=== PATIENT | male | born 1995 | race Caucasian/White ===

== ENCOUNTER 2016-10-13 20:51 | Emergency (ER) | payer OTHER ==
[2016-10-13] MEDS ORDERED: MOTRIN PO ONE (22:25)
[2016-10-13] MEDS ORDERED: NORFLEX PO ONE (22:25)
[2016-10-13] MEDS ORDERED: NORCO-7.5 PO ONE (22:25)
[2016-10-13] MEDS ORDERED: PEPCID PO ONE (22:25)
--- NOTE | 2016-10-13 22:26 | PROVIDER DOCUMENTATION ---
HPI-Musculoskeletal Pain/Inj - GENERAL Chief Complaint: Back Pain Stated Complaint: BACK PAIN Time Seen by Provider: 10/13/16 21:33 Source: patient, family - HX OF PRESENT ILLNESS-MUSKULOSKELTAL Nature of Presenting Problem: 23 year old obese WM presents with c/o right lower back pain for 7 years, worse over the last 2 weeks. denies new injury, trauma, signs or symptoms. pt reports he has been evaluated by ortho spine and has been referred to pain management and has an appointment on the 31 of October. pt denies loss of bowel or bladder, numbness/tingling. Review of Systems - Adult - REVIEW OF SYSTEMS - ADULT Constitutional: reports: no symptoms reported. denies: chills, fever Eyes: reports: no symptoms reported. denies: discharge, blurred vision, double vision Ears, Nose, Mouth & Throat: reports: no symptoms reported. denies: ear discharge, ear pain, nose pain, loose teeth, throat pain, throat swelling Cardiovascular: reports: no symptoms reported. denies: chest pain, palpitations Respiratory: reports: no symptoms reported. denies: chronic cough, cough, shortness of breath, wheezing Gastrointestinal: reports: no symptoms reported. denies: abdominal pain, diarrhea, nausea, vomiting Genitourinary: reports: no symptoms reported. denies: dysuria, hematuria, urgency Musculoskeletal: reports: see HPI, bone pain, back pain. denies: frequent leg cramps, joint pain, joint swelling, muscle aches, muscle weakness, neck pain Integumentary: reports: no symptoms reported. denies: hives, itching Neurological: reports: no symptoms reported. denies: ataxia, dizziness/vertigo , numbness, paresthesia Psychiatric: reports: no symptoms reported Endocrine: reports: no symptoms reported Hematologic/Lymphatic: reports: no symptoms reported Allergic/Immunologic: reports: no symptoms reported All Other Systems: Reviewed and Negative Past History - Adult - PAST MEDICAL HISTORY-ADULT Review of Records: reports: Old Records Reviewed, Nursing Assessment Review, Medications Reviewed, Social history reviewed & non-contributory. 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, brain tumor) - PRIOR SURGERIES/PROCEDURES Surgical/Procedure History: reports: tonsillectomy - PRIOR HOSPITALIZATIONS Prior Hospitalizations: reports: none - IMMUNIZATION STATUS Childhood Immunizations: See Nurse Assessment Flu Vaccine: See Nurse Assessment - FAMILY HISTORY Family History: reviewed, not pertinent - SOCIAL HISTORY Smoking: denies, quit greater than 1 year, cigarettes Substance Use: none/never Alcohol Use Frequency: never Physical Exam-Injury Related - Physical Exam-Injury Related Initial Vital Signs Reviewed: Yes General Appearance: appears well, alert, no apparent distress Eyes: PERRL/EOMI, pink conjunctivae Head, Ears, Nose, Mouth & Throat: normocephalic/atraumatic, normal ENT inspection, TMs normal, pharynx normal Neck: non-tender, full range of motion, supple, normal inspection Respiratory: chest non-tender, lungs clear, normal breath sounds, no pleuratic chest pain, no respiratory distress, no accessory muscle use Cardiovascular: normal peripheral pulses, regular rate, rhythm, no edema, no gallop, no JVD, no murmur Peripheral Pulses: radial (R): 3+, radial (L): 3+ Abdominal Exam: normal bowel sounds, non tender, soft, no organomegaly, no pulsatile mass Rectal Exam: deferred Hemoccult Exam: deferred Lymphatic: no adenopathy Back Exam: normal inspection, no CVA tenderness, vertebral tenderness (lumbar spine tenderness, right paraspinal tenderness). negative: no vertebral tenderness Extremity: normal range of motion, non-tender, normal gait, normal inspection, no pedal edema, no calf tenderness, normal capillary refill, pelvis stable Integumentary: normal color, warm/dry Neurologic: grossly normal, no motor/sensory deficits. negative: focal weakness , motor weakness, sensory deficit Psych/Mental Status: AL, normal mood/affect, normal thought content, normal thought process, oriented x 3 Progress - PLAN OF CARE/RESULTS Progress/Plan/Lab Results: Orders Category Date Time Status Famotidine [Pepcid] Med 10/13/16 22:25 Discontinued 20 mg PO NOW ONE Hydrocodone/APAP 7.5 mg/325 mg [Ekron-7.5] Med 10/13/16 22:25 Discontinued 1 each PO NOW ONE Ibuprofen [Motrin] Med 10/13/16 22:25 Discontinued 800 mg PO NOW ONE Orphenadrine [Norflex] Med 10/13/16 22:25 Discontinued 100 mg PO NOW ONE Vital Signs - 24 hr 10/13/16 10/13/16 20:54 22:42 Pulse Rate 99 H 98 H Respiratory 20 18 Rate Blood Pressure 156/98 138/92 O2 Sat by Pulse 100 100 Oximetry Departure - Departure Time of Disposition Order: 22:22 DIAGNOSIS: Swayback Low back pain Qualifiers: Chronicity: chronic Back pain laterality: right Sciatica presence: without sciatica Qualified Code(s): M54.5 - Low back pain Disposition: HOME 01 Certified Medical Emergency: Emergent Condition: Stable Additional Instructions: Follow up with your ortho spine as scheduled. ED Follow Up Instructions: You have been treated by a care provider in the Emergency Department. These instructions are being provided to you so you can have an understanding of how to care for yourself upon discharge. Upon discharge from the Emergency Department, you are responsible for making arrangements for follow-up care by a physician of your choice. Take all prescribed medications as directed. Return to the Emergency Department immediately for any new or worsening symptoms. You may call the Physician Referral phone number at [phone] to obtain a list of Physicians who are taking new patients. 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
[2016-10-13 22:43] VITALS: BP 138/92
== END 2016-10-13 22:43 | disposition home or self-care (01) ==
LOC: ED 20:51
DX: M54.5 Low back pain (principal); M89.8X9 Other specified disorders of bone, unspecified site; G89.29 Other chronic pain; M40.40 Postural lordosis, site unspecified; Z86.011 Personal history of benign neoplasm of the brain; G11.9 Hereditary ataxia, unspecified; Z87.891 Personal history of nicotine dependence; Z79.899 Other long term (current) drug therapy
CPT/HCPCS: 99283

== ENCOUNTER 2019-06-15 09:39 | Inpatient (IN) ==
[2019-06-15] MEDS ORDERED: DUONEB (A & A) INH ONE ×2 (09:48→09:49)
[2019-06-15] MEDS ORDERED: NS 1,000 ML IV ONE ×2 (09:48→13:03)
[2019-06-15] MEDS ORDERED: TORADOL IV ONE (09:49)
[2019-06-15] MEDS ORDERED: TYLENOL PO ONE (09:49)
[2019-06-15] MEDS ORDERED: SOLU-MEDROL IV ONE (09:49)
[2019-06-15] MEDS ORDERED: ROCEPHIN 1 GM in NS 50 ML IV ONE ×2 (09:50→13:03)
[2019-06-15] MEDS ORDERED: ZITHROMAX PO ONE (09:50)
[2019-06-15] MEDS ORDERED: ZITHROMAX 500 MG/NS 500 MG/250 ML IVPB IV ONE (09:58)
[2019-06-15 11:24] LABS: BASO# 0.02 X1000 (0.0-0.2); BASO% 0.1 % (0.0-0.8); HEMATOCRIT 39.4 % (42.0-52.0); HEMOGLOBIN 13.4 g/dL (14.0-18.0); IMM GRAN# 0.07 X1000 (0.0-0.04); IMM GRAN% 0.5 % (0.0-0.5); LYMPH% 5.9 % (20.5-51.1); MCV 82.4 FL (81-99); MONO# 1.42 X1000 (0.11-0.59); MONO% 10.5 % (1.7-9.3); MPV 10.6 FL (7.4-10.4); NEUT# 11.15 X1000 (1.4-6.5); PLT 178 X1000 (130-400); RBC 4.78 XMIL (4.7-6.1); RDW 14.3 % (11.5-14.5); WBC 13.46 X1000 (4.8-10.8)
[2019-06-15 11:33] LABS: INR 1.25; PROTIME 15.9 Seconds (11.0-16.0)
[2019-06-15 11:35] LABS: PTT 34.8 Seconds (22.3-41.8)
[2019-06-15 11:57] LABS: AGAP 11; ALBUMIN 3.2 g/dL (3.5-5.0); ALKALINE PHOSPHATASE 90 U/L (32-122); BUN 7 mg/dL (8-22); CALCIUM 7.9 mg/dL (8.8-10.2); CHLORIDE 96 mmol/L (98-107); COSMO 258; CREATININE 0.9 mg/dL (0.7-1.2); ESTIMATED GFR > 60; GLUCOSE 123 mg/dL (70-104); GOT 59 U/L (10-34); GPT 70 U/L (10-44); POTASSIUM 3.7 mmol/L (3.5-5.1); SODIUM 129 mmol/L (136-145); TCO2 22 mmol/L (25-35); TOTAL BILIRUBIN 0.71 mg/dL (0.20-1.00); TOTAL PROTEIN 6.5 g/dL (6.3-8.3)
[2019-06-15 11:58] LABS: CK PROFILE 251 U/L (24-204)
--- NOTE | 2019-06-15 11:58 | Diag Imaging Result Doc PS360 ---
EXAM: CHEST-2 VIEWS INDICATION: short of breath, fever TECHNIQUE: 2 views COMPARISON: 06/14/2019 FINDINGS: Lung volumes are low similar to the previous study. No new consolidation is appreciated. The lungs remain grossly clear. No pleural fluid collection or pneumothorax is appreciated. The cardiomediastinal silhouette and central vasculature are grossly unremarkable. IMPRESSION: Low lung volumes but no definite acute pathology by plain radiograph, otherwise. Electronically signed by Cory Charles 06/15/2019 11:55 AM
[2019-06-15 12:27] LABS: CK INDEX 0.4 (0.0-2.5)
--- NOTE | 2019-06-15 13:07 | EKG Report ---
Test Performed on : 06/15/2019 09:49:09 AM Test Reason : ED. No order in [place] Blood Pressure : / mmHG Vent. Rate : 122 BPM Atrial Rate : 122 BPM P-R Int : 142 ms QRS Dur : 092 ms QT Int : 306 ms P-R-T Axes : -07 010 023 degrees QTc Int : 436 ms Sinus tachycardia. Otherwise normal ECG When compared with ECG of 24-APR-2018 11:57, No significant change was found Unconfirmed Result
--- NOTE | 2019-06-15 13:08 | PROVIDER DOCUMENTATION ---
This chart was entered by Erin Hall Scribe, acting as scribe for Eagle Henry MD. HPI-Fever - General Chief Complaint: Shortness of Breath Stated Complaint: CANT BREATHE Time Seen by Provider: 06/15/19 09:42 Source: patient Allergies/Adverse Reactions: Patient Allergies Allergy/AdvReac Type Severity Reaction Status Date / Time No Known Allergies Allergy Verified 06/15/19 10:45 Home Medications: Home Medication List Medication Instructions Recorded Confirmed Last Taken Type Pantoprazole [Protonix] 40 mg PO DAILY 06/14/19 06/15/19 Unknown History - History of Present Illness-Fever Nature of Presenting Problem: Patient is a 24 year old male who presents with fever. States shortness of breath, chills, body aches, headache, chest pain and cough with fever. Reports symptoms have been present for 3 days. History of cerebellar ataxia. Patient was seen in the ED yesterday and diagnosed with viral syndrome. Fever Severity/Quality: reports: greater than 100.5 F Onset/Duration: reports: 3 days ago Timing: reports: still present Severity: reports: moderate Recent Illness?: reports: none Cognitive Baseline: alert, oriented x3 Associated Symptoms: reports: chest pain, cough, fever/chills (chills), headaches, muscle aches Similar Symptoms Previously?: Yes Recently seen or treated by another doctor?: Yes - Glascow Coma Score Best Eye Response ([place]): (4) open spontaneously Best Verbal Response ([place]): (5) oriented Best Motor Response ([place]): (6) obeys commands [place] Total: 15 Review of Systems - Adult - REVIEW OF SYSTEMS - ADULT Constitutional: reports: see HPI, chills, fever. denies: fatique Eyes: reports: no symptoms reported Ears, Nose, Mouth & Throat: reports: no symptoms reported Cardiovascular: reports: see HPI, chest pain. denies: irregular heart rate, palpitations Respiratory: reports: see HPI, cough, shortness of breath. denies: wheezing Gastrointestinal: reports: no symptoms reported Genitourinary: reports: no symptoms reported Musculoskeletal: reports: see HPI, muscle aches. denies: back pain, neck pain Integumentary: reports: no symptoms reported Neurological: reports: see HPI, headache/migraines (MARK). denies: dizziness /vertigo, syncope Psychiatric: reports: no symptoms reported Endocrine: reports: no symptoms reported Hematologic/Lymphatic: reports: no symptoms reported Allergic/Immunologic: reports: no symptoms reported All Other Systems: Reviewed and Negative Past History - Adult - PAST MEDICAL HISTORY-ADULT Review of Records: reports: Old Records Reviewed, Social history reviewed & non- contributory. 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, brain tumor) - PRIOR SURGERIES/PROCEDURES Surgical/Procedure History: reports: tonsillectomy - PRIOR HOSPITALIZATIONS Prior Hospitalizations: reports: none - IMMUNIZATION STATUS Childhood Immunizations: See Nurse Assessment Flu Vaccine: See Nurse Assessment - FAMILY HISTORY Family History: reviewed, not pertinent - SOCIAL HISTORY Smoking: other (vape) Substance Use: alcohol Alcohol Use Frequency: occasionally Living Situation: family Physical Exam-General - PHYSICAL EXAM-ADULT Initial Vital Signs Reviewed: Yes - CONSTITUTIONAL General Appearance: alert, mild distress, obese, other (ill in appearance). negative: lethargic - HEAD, EARS, NOSE, MOUTH & THROAT HENMT: normocephalic/atraumatic, other (dry mucous membranes). negative: angioedema - RESPIRATORY Respiratory: chest non-tender, increased rate. negative: respiratory distress, crackles, wheezing - CARDIOVASCULAR Cardiovascular: normal peripheral pulses, tachycardia. negative: systolic murmur - GASTROINTESTINAL (ABDOMEN) Abdominal Exam: normal bowel sounds, non tender, soft. negative: guarding, rebound - MUSCULOSKELETAL Extremity: non-tender, normal inspection. negative: deformity, erythema - SKIN Integumentary: normal color, normal turgor, diaphoresis. negative: jaundice, rash - NEUROLOGIC Neurologic: grossly normal. negative: aphasia, facial droop - PSYCHIATRIC Psych/Mental Status: normal mood/affect, oriented x 3. negative: anxious Progress - PLAN OF CARE/RESULTS Progress/Plan/Lab Results: Vital Signs - 8 hr 06/15/19 09:42 06/15/19 09:57 06/15/19 09:59 Temperature 100.7 F H Pulse Rate 120 H 118 H Respiratory Rate 23 30 H Blood Pressure 112/68 O2 Sat by Pulse Oximetry 96 96 06/15/19 12:29 Temperature 99.3 F Pulse Rate 94 H Respiratory Rate 25 H Blood Pressure 114/61 O2 Sat by Pulse Oximetry 92 L 06/15/19 11:35 Group A Strep Rapid Antigen - Final Throat 06/15/19 09:58 Influenza Screen - Final Nasopharyngeal Laboratory Results - last 24 hr 06/15/19 06/15/19 06/15/19 09:52 11:00 11:00 WBC 13.46 H RBC 4.78 Hgb 13.4 L Hct 39.4 L MCV 82.4 MCH 28.0 MCHC 34.0 RDW Std Deviation 14.3 Plt Count 178 MPV 10.6 H Immature Gran % (Auto) 0.5 Neut % (Auto) 83.0 H Lymph % (Auto) 5.9 L [place] % (Auto) 10.5 H Eos % (Auto) 0.0 Baso % (Auto) 0.1 Immature Gran # (Auto) 0.07 H Neut # (Auto) 11.15 H Lymph # (Auto) 0.80 L [place] # (Auto) 1.42 H Eos # (Auto) 0.00 Baso # (Auto) 0.02 PT INR PTT (Actin FS) D-Dimer, Quantitative Sodium Potassium Chloride Carbon Dioxide Anion Gap BUN Creatinine Estimated GFR/1.73 m2 BUN/Creatinine Ratio Glucose POC Glucose 173 H Calculated Osmolality Calcium Total Bilirubin AST ALT Alkaline Phosphatase Creatine Kinase Creatine Kinase Index CK-MB (CK-2) Troponin T Total Protein Albumin Globulin Albumin/Globulin Ratio Plasma Lactate 1.2 06/15/19 06/15/19 06/15/19 11:00 11:00 11:00 WBC RBC Hgb Hct MCV MCH MCHC RDW Std Deviation Plt Count MPV Immature Gran % (Auto) Neut % (Auto) Lymph % (Auto) [place] % (Auto) Eos % (Auto) Baso % (Auto) Immature Gran # (Auto) Neut # (Auto) Lymph # (Auto) [place] # (Auto) Eos # (Auto) Baso # (Auto) PT 15.9 INR 1.25 PTT (Actin FS) 34.8 D-Dimer, Quantitative Sodium 129 L Potassium 3.7 Chloride 96 L Carbon Dioxide 22 L Anion Gap 11 BUN 7 L Creatinine 0.9 Estimated GFR/1.73 m2 > 60 BUN/Creatinine Ratio 8 Glucose 123 H POC Glucose Calculated Osmolality 258 Calcium 7.9 L Total Bilirubin 0.71 AST 59 H ALT 70 H Alkaline Phosphatase 90 Creatine Kinase 251 H Creatine Kinase Index 0.4 CK-MB (CK-2) 1.00 Troponin T < 0.010 Total Protein 6.5 Albumin 3.2 L Globulin 3.3 Albumin/Globulin Ratio 1.0 Plasma Lactate 06/15/19 11:00 WBC RBC Hgb Hct MCV MCH MCHC RDW Std Deviation Plt Count MPV Immature Gran % (Auto) Neut % (Auto) Lymph % (Auto) [place] % (Auto) Eos % (Auto) Baso % (Auto) Immature Gran # (Auto) Neut # (Auto) Lymph # (Auto) [place] # (Auto) Eos # (Auto) Baso # (Auto) PT INR PTT (Actin FS) D-Dimer, Quantitative 2.80 H Sodium Potassium Chloride Carbon Dioxide Anion Gap BUN Creatinine Estimated GFR/1.73 m2 BUN/Creatinine Ratio Glucose POC Glucose Calculated Osmolality Calcium Total Bilirubin AST ALT Alkaline Phosphatase Creatine Kinase Creatine Kinase Index CK-MB (CK-2) Troponin T Total Protein Albumin Globulin Albumin/Globulin Ratio Plasma Lactate Orders Category Date Time Status Cardiac Monitoring DIRECTED Care 06/15/19 09:46 Active IV Insertion ORDERED Care 06/15/19 09:46 Completed Notify MD of + Sepsis Screen NOW Care 06/15/19 09:46 Active Notify Physician As Ordered Care 06/15/19 09:46 Active CHEST-2 VIEWS [RAD] Stat Exams 06/15/19 09:47 Completed BLOOD CULTURE [BLDCUL] Stat Lab 06/15/19 11:00 Ordered CBC WITH DIFF [HEME] Stat Lab 06/15/19 11:00 Completed CK PROFILE [SP CHEM] Stat Lab 06/15/19 11:00 Completed COMPREHENSIVE METABOLIC PANEL [CHEM] Stat Lab 06/15/19 11:00 Completed D-DIMER [COAG] Stat Lab 06/15/19 11:00 Completed DIRECT STREP Stat Lab 06/15/19 11:35 Completed INFLUENZA SCREEN A/B Stat Lab 06/15/19 09:58 Completed LACTATE, PLASMA [CHEM] Lab 06/15/19 13:00 Uncollected LACTATE, PLASMA [CHEM] Lab 06/15/19 16:00 Uncollected LACTATE, PLASMA [CHEM] Q3H Lab 06/15/19 11:00 Completed PROTIME WITH INR [COAG] Stat Lab 06/15/19 11:00 Completed PTT [COAG] Stat Lab 06/15/19 11:00 Completed TROPONIN T Stat Lab 06/15/19 11:00 Completed URINALYSIS W/POSS RFLX CULT [URINALYSIS] Stat Lab 06/15/19 09:46 Uncollected URINE DRUG SCREEN Stat Lab 06/15/19 09:59 Uncollected 0.9% Sodium Chloride Inj [Ns] 1,000 ml Med 06/15/19 09:48 Discontinued IV 999 mls/hr Acetaminophen [Tylenol] Med 06/15/19 09:49 Discontinued 1,000 mg PO NOW ONE Albuterol 2.5MG/Ipratrop 0.5MG [Duoneb (A & A)] Med 06/15/19 09:48 Discontinued 3 ml INH NOW ONE Albuterol 2.5MG/Ipratrop 0.5MG [Duoneb (A & A)] Med 06/15/19 09:49 Discontinued 3 ml INH NOW ONE Azithromycin 500 mg/Ns [Zithromax 500 mg/Ns] Med 06/15/19 09:58 Discontinued 500 mg in 250 ml IV NOW Azithromycin [Zithromax] Med 06/15/19 09:50 Discontinued 1,000 mg PO NOW ONE CefTRIAXONE [Rocephin] 1 gm Med 06/15/19 09:50 Discontinued 0.9% Sodium Chloride Inj [Ns] 50 ml IV NOW Ketorolac [Toradol] Med 06/15/19 09:49 Discontinued 30 mg IV NOW ONE Methylprednisolone Sod Succ [Solu-Medrol] Med 06/15/19 09:49 Discontinued 125 mg IV NOW ONE Aerosol Treatments Routine Oth 06/15/19 09:49 Completed Aerosol Treatments Routine Oth 06/15/19 09:49 Completed Aerosol Treatments Stat Oth 06/15/19 09:49 Completed Aerosol Treatments Stat Oth 06/15/19 09:49 Completed Oxygen Device Stat Ot 06/15/19 09:46 Active Result Diagrams: 06/15/19 11:00 06/15/19 11:00 - REASSESSMENT Reassessment #1 Time Reassessed: 13:01 Status: improving (Blood culture last night is positive for Gm + Cocci) Reassessment Comment: GIven IVF bolus, IV toradol, solumedrol, IV rocephin/zithromax for CAP - EKG 1 Time of EKG reading by physician:: 09:49 EKG Read and Signed by:: Eagle Henry EKG Interpretation (*Must complete 3 of following elements*): Abnormal Rate: 122 Rhythm: sinus tachycardia [place]: normal [place] Interval: normal Comments: otherwise normal ECG - CONSULTS/PCP/HOSPITALIST Notification #1 *Consult/PCP/Hospitalist*: SERVANDO Esposito Time Discussed: 13:07 Reason/Comments: Admit to [facility] Consult Disposition: Will see in ED Departure - Departure Date of Disposition Decision: 06/15/19 Time of Disposition Decision: 13:05 DIAGNOSIS: Bacteremia due to other bacteria Sepsis without acute organ dysfunction Qualifiers: Sepsis type: Pneumococcus Qualified Code(s): A40.3 - Sepsis due to Streptococcus pneumoniae Bilateral pneumonia Qualifiers: Pneumonia type: due to Pneumococcus Lung location: unspecified part of lung Qualified Code(s): J13 - Pneumonia due to Streptococcus pneumoniae Disposition: ADMITTED INPATIENT 09 Certified Medical Emergency: Emergent Condition: Fair Referrals and Follow-Ups: None,PCP [Primary Care Provider] - - Critical Care Note This patient required my direct & personal management of CC.: Yes Total Time (mins): 35 ([facility], STRATEGY ASSOCIATE, metabolic) Critical Care Statement: This patient required my direct personal management to treat or rule out processes, the absence of which, could potentiallly result in sudden, clinically significant life or limb threatening deterioration. Attestation - Physician/ RACHEL Attestation Patient care was provided by Advanced Practice Provider:: No The physician spent face to face time with patient:: Yes Advanced Practice Provider documentation review:: Supervising physician onsite and consulted in the evaluation and care of this patient. The physician did have a face to face encounter with the patient. This chart was documented by the indicated scribe, (Erin Hall Scribe) and accurately reflects the services I performed and decisions made by , Eagle Henry MD, as attested by the provider's signature.
[2019-06-15 13:54] LABS: URINE SOURCE CLEAN CATCH
[2019-06-15 13:59] LABS: BILIRUBIN URINE NEGATIVE (NEGATIVE); BLOOD URINE TRACE (NEGATIVE); COLOR YELLOW; GLUCOSE URINE TRACE mg/dL (NEGATIVE); KETONE URINE TRACE mg/dL (NEGATIVE); LEUKOCYTES URINE NEGATIVE (NEGATIVE); NITRITE URINE NEGATIVE (NEGATIVE); PH URINE 6.5; PROTEIN URINE 50 mg/dL (NEGATIVE); SP GRAVITY URINE 1.019; TURBIDITY URINE CLEAR (CLEAR); UROBILINOGEN URINE NORMAL (NORMAL)
[2019-06-15] MEDS ORDERED: VANCOMYCIN IV PER PHARMACY MISC SCH (14:00)
[2019-06-15 14:02] LABS: UR EPITHELIAL CELLS <10 /HPF (<10); URINE BACTERIA NEGATIVE /HPF; URINE RBC <10 /HPF (<10); URINE WBC <10 /HPF (<10)
[2019-06-15 14:11] LABS: UR AMPHETAMINES QUAL PRESUMPTIVE POSITIVE (NONE DETECT); UR BARBITUATES QUAL NONE DETECTED (NONE DETECT); UR BENZODIAZEPIN QUAL PRESUMPTIVE POSITIVE (NONE DETECT); UR CANNABINOIDS QUAL PRESUMPTIVE POSITIVE (NONE DETECT); UR COCAINE QUAL PRESUMPTIVE POSITIVE (NONE DETECT); UR METHADONE QUAL NONE DETECTED (NONE DETECT); UR OPIATES QUAL NONE DETECTED (NONE DETECT); UR OXYCODONE QUAL NONE DETECTED (NONE DETECT); UR PCP QUAL NONE DETECTED (NONE DETECT)
[2019-06-15] MEDS: ZOSYN 3.375 GM in NS 50 ML IV SCH ×2 (14:15→21:08)
[2019-06-15 14:24] LABS: URINE CRYSTALS CA OXALATE PRESENT
--- NOTE | 2019-06-15 15:15 | Diag Imaging Result Doc PS360 ---
EXAM: CT ANGIOGRM PULMONARY ARTERIES 06/15/2019 HISTORY: elevated ddimer, dyspnea TECHNIQUE: This exam was performed using automated exposure control, adjustment of mA or kV according to patient size, and/or use of iterative reconstruction technique. COMMENT: There are no filling defects in the pulmonary arteries. The aorta is not distended and there is no evidence of dissection. There is extensive alveolar opacification of the left lower lobe and also in the posterior inferior right upper lobe. There is a calcified granuloma in the right middle lobe. Minimal atelectatic changes are present in the right posterior costophrenic sulcus. There are also atelectatic or fibrotic changes in the lingula. There is a small splenule near the spleen. The spleen is enlarged measuring over 16.5 cm in AP dimension. There is a right paratracheal node measuring over 15 mm. The regional skeleton appears to be intact. IMPRESSION: Bronchopneumonia particularly in the left lower lobe. Advise follow-up until clear. Splenomegaly. Right paratracheal adenopathy. Electronically signed by Pedro Alejandra 06/15/2019 3:12 PM
[2019-06-15] MEDS: NS 1,000 ML IV SCH (15:18)
[2019-06-15] MEDS: DUONEB (A & A) INH SCH ×3 (15:38→23:41)
[2019-06-15] MEDS: VANCOMYCIN 2,000 MG in NS 500 ML IV SCH (17:06)
[2019-06-16] MEDS: NS 1,000 ML IV SCH ×5 (00:13→23:39)
[2019-06-16] MEDS: ZOSYN 3.375 GM in NS 50 ML IV SCH ×4 (02:36→20:30)
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
[2019-06-16] MEDS: VANCOMYCIN 2,000 MG in NS 500 ML IV SCH ×2 (03:50→15:38)
[2019-06-16] MEDS: PRILOSEC PO SCH (06:34)
[2019-06-16] MEDS: DUONEB (A & A) INH SCH ×7 (07:40→23:12)
[2019-06-16 07:41] LABS: BASO# 0.02 X1000 (0.0-0.2); BASO% 0.2 % (0.0-0.8); HEMATOCRIT 40.1 % (42.0-52.0); HEMOGLOBIN 13.7 g/dL (14.0-18.0); IMM GRAN# 0.05 X1000 (0.0-0.04); IMM GRAN% 0.4 % (0.0-0.5); LYMPH# 0.66 X1000 (1.2-3.4); MCHC 34.2 g/dL (33-37); MONO# 0.97 X1000 (0.11-0.59); MONO% 7.4 % (1.7-9.3); MPV 10.4 FL (7.4-10.4); NEUT# 11.49 X1000 (1.4-6.5); PLT 219 X1000 (130-400); RBC 4.89 XMIL (4.7-6.1); RDW 14.6 % (11.5-14.5); WBC 13.19 X1000 (4.8-10.8)
[2019-06-16] MEDS: TYLENOL PO PRN ×2 (07:57→20:47)
[2019-06-16 08:08] LABS: AGAP 12; ALB/GLOB RATIO 0.8; ALBUMIN 3.2 g/dL (3.5-5.0); ALKALINE PHOSPHATASE 86 U/L (32-122); BUN 7 mg/dL (8-22); CALCIUM 8.5 mg/dL (8.8-10.2); CHLORIDE 107 mmol/L (98-107); COSMO 277; CREATININE 0.8 mg/dL (0.7-1.2); ESTIMATED GFR > 60; GLUCOSE 125 mg/dL (70-104); GOT 31 U/L (10-34); GPT 58 U/L (10-44); MAGNESIUM 2.1 mg/dL (1.5-2.7); POTASSIUM 3.6 mmol/L (3.5-5.1); SODIUM 139 mmol/L (136-145); TCO2 20 mmol/L (25-35); TOTAL BILIRUBIN 0.38 mg/dL (0.20-1.00)
[2019-06-16 08:33] LABS: BANDS 1 % (0-1); LYMPHS 6 % (21-51); MONO 5 % (1-9); SEGS 88 % (42-75)
[2019-06-16 09:17] LABS: HIV ANTIBODY SCREEN SEE COMMENTS
--- NOTE | 2019-06-16 13:11 | PROGRESS NOTE ---
DATE: 06/16/2019 SUBJECTIVE: Patient reports still short of breath. Basic better in comparing with yesterday. Denies any chest pain. OBJECTIVE: Vital Signs: Temperature 99.0 degrees, heart rate 94, respiratory rate 26, blood pressure 125/72. O2 saturation 94% on room air. General Examination: This is a 24-year-old male, lying in bed, in no acute distress. Cardiovascular: S1, S2 heard. No murmurs, gallops, or rubs. Regular rate and rhythm. Respiratory: Clear bilaterally to auscultation. No work of breathing. Not using accessory muscles. Abdomen: Soft. Nontender to palpation. Nondistended. Bowel sounds present. No organomegaly. Extremities: No clubbing. No cyanosis or edema. Peripheral pulses present in both legs. Neurological: The patient is alert and oriented x3. Moves 4 extremities. LABORATORY DATA: White cell count 13.19, hemoglobin 13.7, hematocrit 40.1, platelets 219,000. BMP is okay with calcium 8.2, albumin 3.2. UDS positive for amphetamines, benzodiazepines, cocaine, and cannabinoids, and the HIV test has returned nonreactive. ASSESSMENT AND PLAN: 1. Left lower lobe pneumonia. Patient is on vancomycin and Zosyn. White cell count is still slightly elevated. We will continue with breathing treatments and current antibiotic therapy. Preliminary results from blood cultures show with gram-positive cocci. The final sensitivity is not back yet. At this point, we will continue with the same management. 2. Elevated D-dimer. We have ruled out pulmonary embolism already. 3. Active polysubstance abuse. I had a long conversation with the patient. I encouraged him to quit using drugs. He reports being in a rehab center. He said that he will try to quit drugs. He said the last time that he used IV drugs was less than a year ago. In any case, we will do an echocardiogram and hepatitis panel. 4. Hyponatremia. Continue IV hydration, it is resolved. 5. Disposition. At this point, I am planning to keep this patient over the weekend awaiting for the blood cultures. We will continue with current antibiotic. Once we know the final sensitivity on the blood culture, then we will level adjust antibiotics accordingly. cc: Johan Eduardo MD [facility] SHOREShasha
--- NOTE | 2019-06-16 17:57 | ECHO REPORT ---
ORDER DATE: 06/15/2019 INDICATION: Fever, IV drug use, dyspnea. M-MODE MEASUREMENTS: Left ventricle end diastole: 5.2. Left ventricle end systole: 3.5. Posterior wall: 1.1. Interventricular septum: 1.1. Left atrium: 4.0. Aortic diameter: 3.7. SUMMARY OF 2-DIMENSIONAL IMAGIN. Left ventricular function is normal. Ejection fraction visually estimated at 60%. No wall motion abnormality noted. 2. The right ventricle appears to be normal. 3. The aortic valve is normal. Color flow mapping unremarkable. 4. The mitral valve looks normal. Color flow mapping unremarkable. 5. Pulsed wave Doppler of mitral inflow is normal. 6. Tissue Doppler of septal and lateral mitral annulus is normal. There is no diastolic dysfunction. 7. The pulmonic valve appears to be grossly normal. 8. The tricuspid valve appears to be grossly normal. Color flow mapping indicates minimal regurgitation. The inferior vena cava is not dilated. Pulmonary pressure is estimated at 37 mmHg. 9. Pulmonary venous flow is normal. 10.There is no pericardial effusion, mass, or thrombus. Clinical correlation recommended. cc: MD Johan Cuadra MD
--- NOTE | 2019-06-16 21:58 | Extremity Venous Study ---
PROCEDURE NAME: Venous U/S Bilateral Legs - 06/15/2019 REFERRING PHYSICIAN: SERVANDO Cervantes READING PHYSICIAN: Jose Roberto Landeros MD CONTRACT MANAGER: Robel. INDICATION: Elevated D-dimer. FINDINGS: The deep and superficial veins of both lower extremities were imaged throughout their course. They are compressible, patent, and without thrombus. INTERPRETATION: No deep venous thrombosis or superficial venous thrombosis of either lower extremity. cc: MD Fabiana Hobbs CRNP
[2019-06-17] MEDS: ZOSYN 3.375 GM in NS 50 ML IV SCH (01:10)
[2019-06-17] MEDS: TYLENOL PO PRN ×2 (01:35→09:27)
[2019-06-17] MEDS: VANCOMYCIN 2,000 MG in NS 500 ML IV SCH ×3 (03:55→17:34)
[2019-06-17] MEDS: NS 1,000 ML IV SCH (05:24)
[2019-06-17] MEDS: PRILOSEC PO SCH (06:12)
[2019-06-17 06:21] LABS: BASO# 0.01 X1000 (0.0-0.2); BASO% 0.1 % (0.0-0.8); HEMATOCRIT 36.7 % (42.0-52.0); HEMOGLOBIN 12.5 g/dL (14.0-18.0); IMM GRAN# 0.07 X1000 (0.0-0.04); IMM GRAN% 0.8 % (0.0-0.5); LYMPH# 1.27 X1000 (1.2-3.4); LYMPH% 14.4 % (20.5-51.1); MCH 28.2 PG (27-31); MCHC 34.1 g/dL (33-37); MCV 82.8 FL (81-99); MONO# 0.78 X1000 (0.11-0.59); MONO% 8.8 % (1.7-9.3); MPV 10.7 FL (7.4-10.4); NEUT# 6.71 X1000 (1.4-6.5); NEUT% 75.9 % (42.2-75.2); PLT 233 X1000 (130-400); RBC 4.43 XMIL (4.7-6.1); WBC 8.84 X1000 (4.8-10.8)
[2019-06-17 06:37] LABS: AGAP 17; ALKALINE PHOSPHATASE 77 U/L (32-122); BUN 7 mg/dL (8-22); CALCIUM 7.8 mg/dL (8.8-10.2); CHLORIDE 107 mmol/L (98-107); COSMO 286; CREATININE 0.8 mg/dL (0.7-1.2); ESTIMATED GFR > 60; GLUCOSE 118 mg/dL (70-104); GOT 27 U/L (10-34); GPT 49 U/L (10-44); POTASSIUM 3.3 mmol/L (3.5-5.1); SODIUM 144 mmol/L (136-145); TCO2 20 mmol/L (25-35); TOTAL BILIRUBIN 0.26 mg/dL (0.20-1.00); TOTAL PROTEIN 6.1 g/dL (6.3-8.3)
[2019-06-17] MEDS: DUONEB (A & A) INH SCH ×5 (07:28→23:15)
[2019-06-17] MEDS ORDERED: LEVAQUIN PO SCH (09:00)
[2019-06-17] MEDS: KLOR-CON PO SCH ×2 (09:27→12:45)
[2019-06-17] MEDS: LOVENOX SUBQ SCH (09:28)
[2019-06-17 13:47] LABS: HEPATITIS PROFILE ACUTE SEE COMMENTS
--- NOTE | 2019-06-17 13:50 | PROGRESS NOTE ---
DATE: 06/17/2019 INTERVAL HISTORY: He did have episode of fever early intervention specialist today. He continues to complain of some chest pain, pleuritic in nature and shortness of breath. He continues to complain of some dizziness. Discussed about the pathogenesis of Staph epidermidis bacteremia, IV drug use being risk factor. He denies using IV drugs though. We also discussed about IV access. I answered all of his questions. His mother is at bedside. OBJECTIVE: VITAL SIGNS: Currently, temperature 101.4 degrees, pulse 110, respiratory 16, blood pressure 130/82. She is saturating 99% on room air. PHYSICAL EXAMINATION: General: Morbidly obese, not in acute distress. Oral cavity is moist. Lungs: Air entry bilaterally equal. No wheeze or rhonchi. Inspiratory crackles, left infrascapular region. Cardiovascular: S1, S2 normal. No murmur, rub, or gallop.. Abdomen: Soft, nontender. Extremity: No lower extremities edema. Neurologic: He is alert and oriented x3. Able to raise both upper and lower extremity and move spontaneously. LABORATORY DATA: Suggestive of no leukocytosis, normocytic anemia, normal platelet count, hypokalemia which is currently being repleted. So far, the repeat blood culture on 15 June has been negative. ASSESSMENT AND PLAN: 1. Staphylococcal epidermidis sepsis with a history of substance abuse leading to likely hematogenesis spread bilateral lung pneumonia. Continue intravenous vancomycin. Start patient on oral Levaquin. Follow up with sputum culture, urine antigen results. I will consult Infectious Disease team tomorrow for long-term antibiotic plan. Surgical team has been consulted for need for IV access. 2. Polysubstance abuse patient was counseled about not using these substances in future. HIV test has been negative. Hepatitis panel is pending. He states he used IV drugs less than a year ago and recently he has been snorting cocaine mixed with other substances. Echocardiogram did not have any valvular vegetation. 3. Hyponatremia, now resolved. DISPOSITION: I will continue to monitor patient inside the hospital. I conclude with Infectious Disease team as well as Surgical Team about long-term antibiotic management plan and need for IV access since he has Staph bacteremia on 2 of the blood cultures drawn on June 14. He would need long-term antibiotic therapy. Plan of care discussed with the patient and his mother at bedside. Their questions have been answered. cc: Dima Lim MD
[2019-06-18] MEDS: VANCOMYCIN 2,000 MG in NS 500 ML IV SCH ×2 (00:33→14:07)
[2019-06-18] MEDS: PRILOSEC PO SCH (06:18)
[2019-06-18 07:36] LABS: AGAP 11; BUN 6 mg/dL (8-22); CALCIUM 8.7 mg/dL (8.8-10.2); CHLORIDE 101 mmol/L (98-107); COSMO 273; CREATININE 0.7 mg/dL (0.7-1.2); ESTIMATED GFR > 60; GLUCOSE 93 mg/dL (70-104); MAGNESIUM 1.8 mg/dL (1.5-2.7); POTASSIUM 3.3 mmol/L (3.5-5.1); SODIUM 138 mmol/L (136-145); TCO2 26 mmol/L (25-35)
[2019-06-18] MEDS ORDERED: KLOR-CON PO ONE (07:59)
[2019-06-18] MEDS: DUONEB (A & A) INH SCH ×4 (08:16→23:31)
--- NOTE | 2019-06-18 08:26 | PROGRESS NOTE ---
DATE: 06/18/2019 INTERVAL HISTORY: No acute events overnight. I discussed with him about getting an IV access. I also discussed with him about long-term antibiotic plan and awaiting infectious disease's recommendation. I answered all of his questions. His mother is at bedside. He denies any chest pain. He has not been able to make any sputum. His shortness of breath is better. I encouraged him to ambulate. VITALS: Temperature 98.2 degrees, pulse 77, respiratory rate 17, blood pressure 130/74, saturating 97% on room air. PHYSICAL EXAMINATION: Morbidly obese. Not in any acute distress. Oral cavity is moist. Lungs: Air entry bilaterally equal, with inspiratory crackles in the left infrascapular region. No wheeze or rhonchi. S1, S2 normal. No murmur, rub, or gallop. Abdomen: Soft, nontender. No lower extremity edema. He is alert and oriented x3. LABS: No CBC today. BMP has a potassium of 3.3 and magnesium of 1.8 which I would replete. Urine antigens have been collected. He has loose stools but it is only once or twice daily. No other microbiological data. ASSESSMENT AND PLAN: 1. Staphylococcal epidermidis sepsis with history of substance abuse leading to hematogenously spread bilateral lung pneumonia. His blood cultures on June 14, two sets were positive; his blood culture on June 15, two sets were negative. Continue intravenous vancomycin. We will appreciate infectious disease recommendation about changing antibiotics to intravenous Levaquin for long-term antibiotic management plan. I will also appreciate recommendation about intravenous access. He has not been able to make sputum. His urine antigens are pending. 2. Polysubstance abuse with urine toxicology positive for cocaine, amphetamine, benzodiazepine, and cannabis. He, however, states that he has only been snorting and not injecting at least for the last one year. Echocardiogram did not have any valvular vegetations. I counseled him about stopping these substances. 3. Hypokalemia, is currently being repleted; he does have history of cerebellar ataxia and undiagnosed seizure. 4. Disposition. I will continue to monitor patient inside the hospital. We will possibly transfer him out of PVC unit. Plan of care discussed with the patient and his questions have been answered. cc: Dima Lim MD
[2019-06-18] MEDS: LOVENOX SUBQ SCH (08:33)
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
[2019-06-19] MEDS: VANCOMYCIN 2,000 MG in NS 500 ML IV SCH ×2 (01:29→17:07)
[2019-06-19] MEDS: DUONEB (A & A) INH SCH ×5 (02:12→19:27)
[2019-06-19] MEDS: PRILOSEC PO SCH (06:21)
[2019-06-19 07:30] LABS: INR 0.95; PROTIME 12.7 Seconds (11.0-16.0)
[2019-06-19 08:07] LABS: CHLORIDE 102 mmol/L (98-107); POTASSIUM 3.8 mmol/L (3.5-5.1); SODIUM 138 mmol/L (136-145); TCO2 21 mmol/L (25-35)
[2019-06-19 08:08] LABS: AGAP 15; BUN 9 mg/dL (8-22); CALCIUM 8.4 mg/dL (8.8-10.2); COSMO 274; CREATININE 0.7 mg/dL (0.7-1.2); ESTIMATED GFR > 60; GLUCOSE 90 mg/dL (70-104)
[2019-06-19] MEDS: LOVENOX SUBQ SCH (09:41)
[2019-06-19 12:14] VITALS: BP 146/89
[2019-06-19] MEDS ORDERED: NS 250 ML ONE (13:54)
--- NOTE | 2019-06-20 09:03 | DISCHARGE SUMMARY ---
ADMISSION DATE: 06/15/2019 DISCHARGE DATE: 06/19/2019 DISCHARGE DISPOSITION: Home with PICC line. DISCHARGE CONDITION: Hemodynamically stable. No fever. He is about to get his PICC line. He will need home IV vancomycin therapy. social services is working on setting it up. DISCHARGE DIAGNOSES: 1. Staphylococcal epidermidis sepsis. 2. Polysubstance abuse. 3. Hematogenesis bilateral Staphylococcus epidermidis pneumonia. 4. Hypokalemia. 5. History of cerebellar ataxia and unclear seizure disorder, not on any medication. 6. Morbid obesity. DISCHARGE MEDICATION: 1. Pantoprazole 40 mg daily. 2. Acetaminophen 650 mg every 6 hours as needed for pain. 3. Intravenous vancomycin for 10 days. Additionally, last day would be 06/28/2019. CONSULTATIONS DURING HOSPITALIZATION: 1. Dr. Allen for antibiotic set up. 2. Dr. Holman for IV access, which he did not require eventually. VITALS: At the time of discharge temperature 98.9 degrees, pulse 82, respiratory 21, blood pressure 150/80, saturating 95% room air. PHYSICAL EXAMINATION: General: Does not appear in any acute distress. Oral cavity is moist. Lungs: Air entry bilaterally equal. Inspiratory crackles left infrascapular region. Cardiovascular: S1, S2 normal. No murmur or gallop. Abdomen: Soft, nontender. Extremity: No lower extremity edema. Neurologic: He is alert and oriented x3. SIGNIFICANT LABS: During hospital admission discharge, [place] [address] on admission which had decreased to 8000 at the time of discharge, hemoglobin 12.5, and platelet 233,000. His sodium is 138, potassium 3.8, BUN of 9, creatinine of 0.7. His urinalysis had ketonuria. His urine toxicology was positive for amphetamine, benzodiazepine, cocaine and cannabis. His hepatitis and HIV were negative. Significant microbiology during hospital admission. Two of the blood cultures were positive for Staphylococcus epidermidis on 06/14/2019. Repeat blood cultures on 06/15/2019, 2 of them were negative. The Staphylococcus epidermidis was sensitive to clindamycin, vancomycin, levofloxacin; however, it was resistant to oxacillin and penicillin G . SIGNIFICANT IMAGING DURING HOSPITAL ADMISSION: Chest x-ray on admission had low lung volumes without any acute pathology. Extremity venous studies did not have any evidence of DVT or SVT in any of the extremities. Pulmonary arteriogram on 06/15/2019 had bronchopneumonia in the left lower lobe and right upper lobe. There was splenomegaly and right paratracheal adenopathy. HOSPITAL COURSE SUMMARY: Mr. Loja is a 24-year-old man with history of polysubstance abuse, who initially presented on 06/15/2019 with chief complaint of shortness of breath, chills and body aches. Was found to have tachycardia and fever of 100.7. Initially on his previous ER visit the day prior he was diagnosed with viral syndrome and sent home. However, the next day he came back with persistent symptoms and this time around, hospitalist team was consulted for further management. His urine toxicology was positive for multiple substances and he appeared septic, so he was admitted for further management. He was started on broad-spectrum intravenous antibiotics and intravenous fluids. Pulmonary arteriogram had detected bronchopneumonia. His blood culture grew Staphylococcus epidermidis. It was thought that this was likely related to his intravenous drug use, so he was kept on intravenous vancomycin. Repeat set of blood culture on June 15 was unremarkable. It was also thought that his bilateral lung pneumonia was related to hematogenously spread Staphylococcus pneumonia and at the time of discharge, he was improving significantly symptomatically. SUBJECTIVE: At the time of discharge, he is denying any chest pain, shortness of breath or cough. PICC line is to be inserted. He admits that he would not use that PICC line for intravenous drug use. Home care agency is in the process of setting up home antibiotics which the patient's mother who lives with him would help him get. He is supposed to follow up with Dr. Allen in his clinic within 10 days and discuss about getting repeat chest x-ray for resolution of pneumonia. More than 30 minutes were spent in discharging this patient. He was extensively counseled about not using substances in the future. cc: Dima Lim MD
== END 2019-06-19 19:56 | disposition home or self-care (01) | DRG 871 ==
LOC: ED 09:39 → SUATTDRO 14:27 → EDIPHOLD 14:27 → 2N 16:47 → 3N 06-18 11:23
PROVIDERS: ATTEND Internal Medicine